=== PATIENT | female | born 1970 | race Caucasian/White ===

== ENCOUNTER → 2019-10-16 | Day surgery (SDC) | payer OTHER ==
[~2019-10-16] MED LIST: Lactated Ringers 1,000 ML IV SCH; Propofol 200 MG/20 ML SDV IV ONE
--- NOTE | 2019-10-16 13:12 | OR ---
DATE OF OPERATION: 10/16/2019 PREOPERATIVE DIAGNOSIS: SCREENING COLONOSCOPY. POSTOPERATIVE DIAGNOSIS: SCREENING COLONOSCOPY. SURGEON: Jose Cruz Alvarez MD PROCEDURE: FULL-LENGTH COLONOSCOPY WITH PARTIAL SNARE POLYP REMOVAL X2. ANESTHESIA: MAC. COMPLICATIONS: None. SPECIMEN: Large pedunculated tubular adenoma, rectosigmoid junction. FINDINGS: 1. Full-length colonoscopy. 2. Large pedunculated tubular adenoma, rectosigmoid junction. RECOMMENDATIONS: The patient will need a definitive removal as we could not completely remove this in [place]. INDICATIONS: The patient was seen by her primary provider for a routine physical. She was recommended to have a screening colonoscopy. DESCRIPTION OF PROCEDURE: The patient was prepped and draped, placed in the left lateral decubitus position. A lubricated Olympus colonoscope was inserted and easily advanced to the cecum. Direct visualization of the ileocecal valve and appendiceal orifice was accomplished. We were able to intubate briefly into the terminal ileum. The bowel prep was excellent. Upon withdrawal, the right transverse and descending colons were completely unremarkable. Throughout most of the sigmoid, I could find no polyps, mass, ulceration, or bleeding sites. No vascular abnormalities or signs of colitis. In the distal sigmoid/ rectosigmoid junction, the patient had a very large pedunculated tubular adenoma with a very broad-based stalk. We attempted many times to get around this and could not down to the base. When we thought we did place, we removed this by section and it was still a very large specimen. There was some bleeding from both of our removal sites with snare and then due to potential risk for complication, we elected to leave this for definitive treatment by surgery. We did get 2 larger pieces of this, but it will need further definitive care. The rest of the rectal vault in the perianal area upon retroflexion was unremarkable. The bleeding appeared to be spontaneously stopped at the polyp. We did retrieve at least 2 or 3 smaller pieces of this. Air was suctioned from the colon and the scope was removed without complication. AIRAM/JOSE /[id number]
== END | disposition home or self-care (01) ==
LOC: CC.SDS 08:22
PROVIDERS: ATTEND Family Medicine
DX: Z12.11 Encounter for screening for malignant neoplasm of colon (principal); D12.7 Benign neoplasm of rectosigmoid junction; E78.5 Hyperlipidemia, unspecified; E55.9 Vitamin D deficiency, unspecified; D50.9 Iron deficiency anemia, unspecified; K21.9 Gastro-esophageal reflux disease without esophagitis; Z88.8 Allergy status to other drugs, medicaments and biological substances; Z79.899 Other long term (current) drug therapy
CPT/HCPCS: 36415; 84703; J2704; J7120

== ENCOUNTER → 2022-12-21 | Day surgery (SDC) | payer OTHER ==
[~2022-12-21] MED LIST changes: +Ketamine 200 MG/20 ML MDV ONE; -Lactated Ringers 1,000 ML IV SCH; -Propofol 200 MG/20 ML SDV IV ONE; +Propofol 200 MG/20 ML SDV ONE; +fentaNYL 50 MCG/ML SDV ONE
[2022-12-21] MEDS: Lactated Ringers 1,000 ML IV SCH (08:46)
== END ==
LOC: CC.SDS 08:32
PROVIDERS: ATTEND Family Medicine
DX: Z12.11 Encounter for screening for malignant neoplasm of colon (principal); K21.9 Gastro-esophageal reflux disease without esophagitis; E78.5 Hyperlipidemia, unspecified; D50.9 Iron deficiency anemia, unspecified; E55.9 Vitamin D deficiency, unspecified; Z86.010 Personal history of colon polyps; Z88.1 Allergy status to other antibiotic agents; Z79.899 Other long term (current) drug therapy; Z88.7 Allergy status to serum and vaccine; Z98.890 Other specified postprocedural states
CPT/HCPCS: 00811; J2704; J3010; J3490; J7120